=== PATIENT | female | born 1975 | race Hispanic/Latino ===

== ENCOUNTER 2025-07-28 08:54 | Day surgery (SDC) | payer BC ==
[2025-07-26 15:23] LABS: IMMATURE GRANULOCYTE ABSOLUTE 0.01 K/uL (0-1); NUCLEATED RED BLOOD CELLS 0.0 % (0.0-0.19); PLATELET COUNT (AUTO) 282 K/uL (130-400); RED BLOOD CELL COUNT(AUTO) 4.59 MIL/uL (4.00-5.50); RED CELL DISTRIBUTION WIDTH 12.6 % (11.0-15.5); WHITE BLOOD COUNT (AUTO) 4.9 K/uL (4.8-10.8)
[2025-07-26 15:32] LABS: CREATININE 0.8 mg/dL (0.5-1.0); GLOMERULAR FILTR. RATE CALC 90.0 mL/min (>90); GLUCOSE,RANDOM 91.0 mg/dL (70-105); SODIUM SERUM 138.0 mmol/L (136-145); UREA NITROGEN, BLOOD 13.0 mg/dL (7-18)
[2025-07-26 15:39] VITALS: BP 150/89; PULSE 70; RESP 18; TEMP 98.2
[2025-07-26 15:40] LABS: INR 0.94 (0.85-1.15)
--- NOTE | 2025-07-27 07:16 | EKG ---
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
[~2025-07-28] VITALS: Ht 154.9 cm; Wt 90.0 kg
[2025-07-28] VITALS (13 sets, daily range): BP systolic 111–129; BP diastolic 53–85; PULSE 56–76; RESP 14–18; TEMP 97.6–97.9
[~2025-07-28 08:54] MED LIST: HYDR25TA67 PO; METO-391 PO; OLME-30 PO
[2025-07-28] MEDS: LACTATED RINGERS 1000ML 1,000 ML IV ONE (10:01)
[2025-07-28] MEDS ORDERED: LIDOCAINE HCL MPF 1% 5ML VIAL ONE (12:16)
[2025-07-28] MEDS ORDERED: SUCCINYLCHOLINE CHLORIDE 20 MG/ML 10 ML VIAL ONE (12:17)
[2025-07-28] MEDS ORDERED: MIDAZOLAM HCL 1 MG/ML 2ML VIAL ONE (12:17)
[2025-07-28] MEDS ORDERED: INDOCYANINE GREEN 25 MG VIAL IJ ONE (12:39)
[2025-07-28] MEDS ORDERED: NEOSTIGMINE METHYLSULFATE 1MG/ML IV ONE (13:09)
[2025-07-28] MEDS ORDERED: GLYCOPYRROLATE 0.2 MG/ML 5 ML VIAL ONE (13:09)
--- NOTE | 2025-07-28 13:27 | PN ---
GENERAL SURGERY PROGRESS NOTE Date/Time Patient Seen: [ 07/28/2025 at 2 p.m.] Problem List: [ ] Interval History: [Postop day 0. Pain tolerable with p.r.n. medication. ] Physical Examination: GENERAL: [No acute distress.] ABD: [Incisions clean, dry and intact, Dermabond in place Laboratory: [ ] Hematology Labs: Test 07/26/25 15:00 Range/Units White Blood Count 4.9 4.8-10.8 K/uL Red Blood Count 4.59 4.00-5.50 MIL/uL Hemoglobin 13.9 12.0-16.0 g/dL Hematocrit 41.4 36-48 % Mean Corpuscular Volume 90.2 79-99 fL Mean Corpuscular Hemoglobin 30.3 27.0-33.0 pg Mean Corpuscular Hemoglobin Concent 33.6 32.0-36.0 g/dL Red Cell Distribution Width 12.6 11.0-15.5 % Platelet Count 282 130-400 K/uL Mean Platelet Volume 8.7 7.5-10.5 fL Immature Granulocyte % (Auto) 0.2 0-1 % Neutrophils (%) (Auto) 53.7 40.0-77.0 % Lymphocytes (%) (Auto) 35.2 21.0-51.0 % Monocytes (%) (Auto) 7.2 3.0-13.0 % Eosinophils (%) (Auto) 2.9 0.0-8.0 % Basophils (%) (Auto) 0.8 0.0-5.0 % Neutrophils # (Auto) 2.6 1.8-7.7 K/uL Lymphocytes # (Auto) 1.7 1.0-4.8 K/uL Monocytes # (Auto) 0.4 0.1-1.0 K/uL Eosinophils # (Auto) 0.14 0.00-0.70 K/uL Basophils # (Auto) 0.04 0.00-0.20 K/uL Absolute Immature Granulocyte (auto 0.01 0-1 K/uL Nucleated Red Blood Cells 0.0 0.0-0.19 % Chemistry Labs: Test 07/26/25 15:00 Range/Units Sodium Level 138 136-145 mmol/L Potassium Level 3.9 3.5-5.1 mmol/L Chloride Level 103 101-111 mmol/L Carbon Dioxide Level 25 21-32 mmol/L Blood Urea Nitrogen 13 7-18 mg/dL Creatinine 0.8 0.5-1.0 mg/dL Glomerular Filtration Rate Calc 90 >90 mL/min Random Glucose 91 70-105 mg/dL Total Calcium 9.2 8.5-10.1 mg/dL Serum Test, Qualitative NEGATIVE NEGATIVE Coagulation Labs: Test 07/26/25 15:00 Range/Units Prothrombin Time 10.0 9.6-11.6 SEC Prothromb Time International Ratio 0.94 0.85-1.15 Activated Partial Thromboplast Time 25.6 L 26.3-35.5 SEC Diagnostics / Radiology: [Copy/Paste Echos/Imaging Report here] Impression and Plan: [ Plan is for discharge home in the next few hours as long as patient tolerating p.o., ambulatory and pain under control. Discussed with the patient and family. They understand and agree.] CASSIUS GAR PAC Jul 28, 2025 13:27
--- NOTE | 2025-07-28 14:37 | OP ---
Operative Note: DATE OF PROCEDURE: 07/28/25 SURGEON: RODDY GAR MD DIRECTOR OF CASINO: Jose Manuel Gar MD p.a. C ANESTHESIA: General and local ANESTHESIOLOGIST/CEMENT GUN OPERATOR: [facility] anesthesia team PREOPERATIVE DIAGNOSIS: Ventral incarcerated hernia POSTOPERATIVE DIAGNOSIS: As above. Defect approximately 3 cm by 2 cm with incarcerated transverse colon and epiploic fat SYNOPSIS: Ventral hernia repair with intraperitoneal onlay mesh reinforcement completed without immediate complication PROCEDURE: 1. Ventral hernia repair with intraperitoneal onlay mesh, robotic assisted 2. Core needle liver biopsy A ESTIMATED BLOOD LOSS: Minimal, less than 30 cc INDICATIONS: As above DESCRIPTION OF PROCEDURE: After standard precautions and preparations were undertaken a Veress needle and optical trocar were used to enter the abdominal cavity. All other instruments were placed under direct vision. The robotic system was docked in the standard fashion. During entry into the abdominal cavity we noted the patient's irregular hepatic contour. She had a history of fatty liver and therefore we thought it appropri ate to take a core needle liver biopsy for further inspection and diagnosis. The specimen was taken and made hemostatic using monopolar cautery. The specimen was sent off for pathologic inspection. We then turned our attention to the hernia. In the midline of the subxiphoid area the patient was noted to have attachments to the transverse colon in the area of the falciform ligament. We began to take down the attachments and we will release what we thought was an adhesion and more and more incarcerated fat kept coming out of a patient's midline ventral hernia defect. Eventually all the intra-abdominal contents were reduced back into the abdominal cavity. We created a preperitoneal flap by taking down the edge of the peritoneal lining on lateral to the midline and developing that plane to fully expose the fascial defect. The defect edges were approximately 3 x 2 cm. We sutured the defect edges back into reapproximation with a permanent suture. We saw the defect closed in two directions. We then place an intraperitoneal onlay mesh (Bard Phasix ST mesh, 8 cm round) and sutured the mesh in place. The mesh had a Seprafilm coating on it and therefore the preperitoneal flap that had been lifted to allow the mesh to lay directly on the fascia was cut in a few places laterally to allow for drainage of fluid buildup from mesh breakdown and prevent seroma formation. At the end of the case all instrument counts were verified as correct including needles and sponges RODDY GAR MD Jul 28, 2025 14:37
[2025-07-28] MEDS ORDERED: PROMETHAZINE HCL 25 MG/ML 1ML AMPULE IM PRN (15:00)
--- NOTE | 2025-07-28 15:20 | NUR ---
PATIENT ARRIVED TO DAYPATIENT VIA STRETCHER BY CHATO REYNAGA. PATIENT AAOX3, VITALS STABLE. INCISIONS X 3 TO LEFT SIDE OF ABDOMEN WELL APPROXIMATED WITH DERMABOND. NO BLEEDING OR DRAINAGE NOTED.
== END 2025-07-28 15:55 | disposition home or self-care (01) ==
LOC: DAH 08:54
PROVIDERS: ATTEND Surgery
DX: K43.6 Other and unspecified ventral hernia with obstruction, without gangrene (principal); K76.0 Fatty (change of) liver, not elsewhere classified; I10 Essential (primary) hypertension; E66.9 Obesity, unspecified; Z88.5 Allergy status to narcotic agent; Z98.890 Other specified postprocedural states; Z79.899 Other long term (current) drug therapy; Z88.8 Allergy status to other drugs, medicaments and biological substances; Z68.36 Body mass index [BMI] 36.0-36.9, adult
CPT/HCPCS: 80048; 84703; 85025; 85610; 85730; 86850; 86900; 86901; 36415; 93005; 47379; 49594; 88313; 88307; A6260; J1100; A4663; A4215 ×2; J7120; J3010 ×2; J0330; J0665; J3490 ×4; J2250; J2704; J2405; J2710; J0690; A6206; C1781; A4930; A4213; A4222; A4221; A4216; A4223 ×2; A4600